=== PATIENT | male | born 1985 | race Caucasian/White ===

== ENCOUNTER 2022-05-17 12:43 | Outpatient (REF) | payer BC, SELFPAY ==
--- OUTSIDE RECORDS SUMMARY | 2022-05-17 12:48 | XMS_ITS | CCD ---
:1985 Author Care Team Providers Name Role Phone AUGIE CHOPRA MD Attending Physician Unavailable Vital Signs Unknown or Not Available. Allergies Unknown or Not Available. Procedures Unknown or Not Available. History of Immunizations Unknown or Not Available. Problems Unknown or Not Available. Results [facility] COVID RHEONIX - Collect Date/Time : 01/09/2021 11:14 Test Name Code Test Result Test Units Test Ref Range SOURCE= Anterior nasal N/A Tier- SYMPTOMS N/A SARS COV2 RNA: 99251-5 NEGATIVE N/A REFERENCE RAN GE: NEGAT Active Medications Medication Code Dose Units Frequency Route Modification Start Date/Time Penicillin [id number] 1 TABLET THREE TIMES A ORAL 09/30 500MG Oral DAY 08:03 Tablet Prescription Detail TAKE 1 TABLET ORAL THREE DAVID ES A DAY Medications Administered During Visit Unknown or Not Available. Encounters Encounter Diagnosis Diagnosis Code Start Date CONTACT WITH AND SUSPECTED EXPOSURE TO COVID-19 [id number] 01/09/2021 Social History Smoking Status Code Start Date End Date Former smoker [id number] Patient Decision Aids Unknown or Not Available. Discharge Instructions You were admitted to [facility] on 01/09/2021 07:18 with a principal diagnosis of Contact with and (suspected ) exposure to COVID-19 You had the following tests done: COPLE Y COVID RHEONIX You were discharged from [facility] on 01/09/2021 07:18 Should you have any questions prior to d ischarge, please contact a member of your healthcare team. If you have left the spital and have any questions, please contact your primary care physician. Chief Complaint and Reason For Visit Unknown or Not Available. Function Status Unknown or Not Available. Plan of Care Unknown or Not Available. Referral/Transition of Care Unknown or Not Available.
--- OUTSIDE RECORDS SUMMARY | 2022-05-17 12:48 | XMS_ITS | Continuity of Care Document ---
:1985 Author Organization [facility] Address [address] [place] [address] Phone Care Team Providers Name Role Phone PCP, of Choice Primary Care Provider Unavailable ELENA Dey Emergency Provider Allergies, Adverse Reactions, Alerts No known allergies Social History Smoking Status Status Start Date End Date Date of Observat ion Never smoked tobacco (finding) D ecember 2021 12:23pm Observation Status Observation Response Date of Response Alcohol Use No April 07, 2022 1 2:23pm substance use type does not use April 07, 2022 1 2:23pm Smoking Status Never smoker April 07, 2022 1 2:23pm Additional Data Assigned Sex Male Problems Active Problems Medical Problem Onset Date Status Conjunctivitis Active Medications Medication Status Dose Units Route Directions Qty Days Start End Ins tructions Date Date Tobramycin Active 1 DROP EACHEYE Q4H 5 March Eliz ly until 2021 symptoms 12:00am resoled plus additional 24 hours. Vital Signs Vital Reading Result Reference Range Collection Date/ Time Height 76 [in_i] April 07 12:23pm Weight 120.20 kg April 07 12:23pm Body Temperature 97.6 [degF] 97.6-99.6 April 07, 2 022 12:23pm Heart Rate 68 /min 60-100 April 07 12:23pm Respiratory rate 16 /min 12-April 07 2 022 12:23pm Oxygen saturation by Pulse 98 % 95-100 Decem 2021 12:23pm oximetry BP Systolic 126 mm[Hg] 100-140 April 07 12:23pm BP Diastolic 80 mm[Hg] 50-85 April 07 12:23pm Advance Directives Advance Directive Response Recorded Date/Time Does patient have an Advance Directive? No April 07, 2022 11:20am Does patient have a COLST form? No April 07, 2022 11:20am Insurance Providers Guarantor SABAS HOYT Address [address] [facility] [address] Contact Info. Home Phone: Payer Policy Id Coverage Id Subscriber's Subscriber Id Effective E xpiration Name Date Date MARCUS [id number] SABAS HOYT [id number] CROSS OUT [address] Encounters Encounter Location(s) Arrival/Admit Date Discharge/Depart Date Provider(s) Departed [facility] April 07, 2022 April 07, 2022 [facility] 11:16am 12:51pm [facility] Functional Status Observation Response Date Recorded Living Situation With Family April 07, 2022 1 2:23pm Plan of Treatment Future Tests Future scheduled test information is unavailable Pending Tests Pending diagnostic test information is unavailable Future Visits Future appointment information is unavailable Referrals to Other Providers Reason for Referral Referral Start Date Provider Provider Conta ct Provider Address Information No Pcp Future Procedures Future procedure information is unavailable Future Medications Future medication information is unavailable Patient Instructions Patient instructions are unavailable Hospital Discharge Instructions Additional Instructions Exam today is most consistent with common cold with associated conjunctivitis. This is likely viral. We discussed and will cover with an antibiotic eye drop to protect from bacterial infection. You can also try an over the counter eye lubrication drop such as natural tears for comfort.
--- OUTSIDE RECORDS SUMMARY | 2022-05-17 12:49 | XMS_ITS | CCD ---
:1985 Author Care Team Providers Name Role Phone RASHAD CANAS Attending Physician Unavailable FABIÁN MA Er Physician 1 Unavailable DEMETRIO Grisgby Registered Nurse Unavailable Vital Signs Vital Sign Value Unit Date/Time Recent/Initial? BMI (Body Mass Index) 36.52 kg/m^2 10/23/2021 07:11 In itial VS Weight Measured 300 lbs 10/23/2021 07:11 Initial VS Height 76 in 10/23/2021 07:11 Initial VS BSA (Body Surface Area) 2.7 m^2 10/23/2021 07:11 Initial VS BP Systolic 174 mmHg 10/23/2021 07:11 Initial VS BP Diastolic 93 mmHg 10/23/2021 07:11 Initial VS Respiratory Rate 15 bpm 10/23/2021 07:11 Initial VS Heart Rate 77 bpm 10/23/2021 07:11 Initial VS O2 % BldC Oximetry 95 % 10/23/2021 07:11 Initi al VS Body Temperature 35.7 degrees 10/23/2021 07:11 Initial VS Allergies Allergy Code Allergy Type Reaction Status No Known Drug Allergies 0 No known drug allergies Active Procedures Unknown or Not Available. History of Immunizations Unknown or Not Available. Problems Unknown or Not Available. Results Unknown or Not Available. Active Medications Medications Administered During Visit Unknown or Not Available. Encounters Encounter Diagnosis Diagnosis Code Start Date Fracture of tooth (traumatic), initial encounter for [id number] 10/23/2021 closed fracture Social History Smoking Status Code Start Date End Date Former smoker [id number] Patient Decision Aids Unknown or Not Available. Discharge Instructions You were admitted to on 10/23/2021 07:02 with a principal diagnosis of Fracture of tooth (traumatic), initia l encounter for closed fracture You were discharged from on 10/23/2021 08:27 Should you have any questions prior to d ischarge, please contact a member of your healthcare team. If you have left the ho spital and have any questions, please contact your primary care physician. Chief Complaint and Reason For Visit Chief Complaint Date of Onset FACIAL SWELLING AND TOOTH PAIN Function Status Unknown or Not Available. Plan of Care Unknown or Not Available. Referral/Transition of Care Unknown or Not Available.
[2022-05-17 21:32] LABS: Abs Immature Grans 0.45 10^3/uL (0.0-0.06); Absolute Eosinophil Count 0.34 10^3/uL (0.0-0.7); Basophils % 0.7; Eosinophils % 2.8; HGB 12.6 g/dL (13.5-17.5); Immature Grans % 3.7; MCH 30.4 pg (27.0-33.0); MCHC 32.3 % (32.0-36.0); MCV 94 fL (80-95); MPV 9.2 fL (8.0-11.0); Monocytes % 5.8; Platelet Count 384 10^3/uL (130-400); RBC 4.14 10^6/uL (4.36-5.78); RDW 12.9 % (11.8-14.1); RDW-SD 44.6 fL; WBC 12.12 10^3/uL (4.4-10.8)
[2022-05-17 21:33] LABS: Absolute Basophil Count 0.08 10^3/uL (0.0-0.2); Absolute Neutrophil Count 8.85 10^3/uL (1.2-6.7)
[2022-05-17 21:43] LABS: ALT 48 U/L (16-63); AST 28 U/L (15-37); Albumin 2.8 g/dL (3.4-5.0); Alkaline Phosphatase 118 U/L (46-116); Anion Gap 4.9 mmol/L (3-11); BUN 16 mg/dL (7-18); Bilirubin, Total 0.6 mg/dL (0.2-1.0); C-Reactive Protein 7.64 mg/dL (0.0-0.3); CO2 28.1 mmol/L (21.0-32.0); CREATININE 0.8 mg/dL (0.70-1.30); Chloride 104 mmol/L (98-107); Estimated GFR 118.36 (mL/min/1.73m2); Glucose 98 mg/dL (74-106); Potassium 4.2 mmol/L (3.5-5.1); Sodium 137 mmol/L (136-145); Total Protein 7.6 g/dL (6.4-8.2)
== END 2022-05-17 12:44 | disposition home or self-care (01) ==
LOC: NCHCN 12:43
PROVIDERS: PCP Family Medicine; Visit Provider Family Medicine
DX: L03.116 Cellulitis of left lower limb (principal); M25.562 Pain in left knee
CPT/HCPCS: 80053; 85025; 86140

== ENCOUNTER 2022-05-20 18:40 | Outpatient (REF) | payer BC, SELFPAY ==
[2022-05-20 21:16] LABS: Absolute Basophil Count 0.08 10^3/uL (0.0-0.2); Absolute Eosinophil Count 0.31 10^3/uL (0.0-0.7); Absolute Lymphocyte Count 1.65 10^3/uL (1.2-3.4); Absolute Monocyte Count 0.47 10^3/uL (0.1-0.8); Absolute Neutrophil Count 7.16 10^3/uL (1.2-6.7); Basophils % 0.8; Eosinophils % 3.1; HGB 13.3 g/dL (13.5-17.5); Lymphocytes % 16.5; MCH 31.1 pg (27.0-33.0); MCHC 33.3 % (32.0-36.0); MCV 94 fL (80-95); MPV 8.7 fL (8.0-11.0); Monocytes % 4.7; Neutrophils % 71.9; Platelet Count 488 10^3/uL (130-400); RBC 4.27 10^6/uL (4.36-5.78); RDW 12.9 % (11.8-14.1); RDW-SD 44.4 fL; WBC 9.97 10^3/uL (4.4-10.8)
[2022-05-23 10:09] LABS: Lyme Ab w Rflx to Lyme Confirm Negative (Negative)
== END 2022-05-20 18:41 | disposition home or self-care (01) ==
LOC: NCHCN 18:40
PROVIDERS: PCP Family Medicine; Visit Provider Family Medicine
DX: M25.562 Pain in left knee (principal); L03.116 Cellulitis of left lower limb
CPT/HCPCS: 85025; 86140; 86618

== ENCOUNTER 2022-05-30 16:15 | Outpatient (REF) | payer BC, SELFPAY ==
[2022-05-30 21:22] LABS: Abs Immature Grans 0.03 10^3/uL (0.0-0.06); Absolute Basophil Count 0.08 10^3/uL (0.0-0.2); Absolute Eosinophil Count 0.27 10^3/uL (0.0-0.7); Absolute Lymphocyte Count 2.05 10^3/uL (1.2-3.4); Absolute Monocyte Count 0.67 10^3/uL (0.1-0.8); Absolute Neutrophil Count 3.97 10^3/uL (1.2-6.7); Basophils % 1.1; Eosinophils % 3.8; HCT 40.1 % (40.0-50.0); HGB 12.8 g/dL (13.5-17.5); Immature Grans % 0.4; MCH 30.3 pg (27.0-33.0); MCHC 31.9 % (32.0-36.0); MCV 95 fL (80-95); MPV 9.2 fL (8.0-11.0); Monocytes % 9.5; Neutrophils % 56.2; Platelet Count 409 10^3/uL (130-400); RBC 4.23 10^6/uL (4.36-5.78); RDW 13.1 % (11.8-14.1); RDW-SD 45.5 fL; WBC 7.07 10^3/uL (4.4-10.8)
[2022-05-30 21:39] LABS: C-Reactive Protein 1.64 mg/dL (0.0-0.3)
[2022-05-30 21:44] LABS: ESR 38 mm/hr (0-15)
== END 2022-05-30 16:16 | disposition home or self-care (01) ==
LOC: NCHCN 16:15
PROVIDERS: PCP Family Medicine; Visit Provider Nurse Practitioner Family
DX: M25.562 Pain in left knee (principal); L03.116 Cellulitis of left lower limb
CPT/HCPCS: 85652; 85025; 86140; 87070; 87205